=== PATIENT | male | born 1945 ===

== ENCOUNTER 2024-12-28 08:23 | Outpatient (CLI) | payer MEDICARE, OTHER, SELFPAY ==
--- NOTE | 2024-12-28 08:39 | US_ITS ---
WS: [id number] Exam: US scrotum [id number] Date/Time of Exam: 12/28/2024 8:40 AM Reason For Exam: TESTICLE PAIN The testicles demonstrate normal echotexture. No evidence of testicular nodule or mass. The testicles are well perfused when evaluated with color flow Doppler. Minimal cystic change in the LEFT epididymis probably representing a small spermatocele. Normal RIGHT epididymis. No sign of hydrocele or varicocele. No scrotal wall abnormalities were noted. US/US scrotum [id number] IMPRESSION: 1. No evidence of testicular mass, torsion or other significant finding. 2. Probable small LEFT spermatocele.
== END 2024-12-28 08:24 | disposition home or self-care (01) ==
PROVIDERS: Visit Provider Nurse Practitioner Family
DX: N50.819 Testicular pain, unspecified (principal)
CPT/HCPCS: 76870